=== PATIENT | male | born 1965 | race American Indian/Alaskan Native ===

== ENCOUNTER 2017-08-19 07:48 | Emergency (ER) | payer OTHER ==
[2017-08-19 07:54] VITALS: BP 170/103
--- NOTE | 2017-08-19 08:44 | Emergency Department Report ---
HPI - General Chief Complaint: Extremity Injury, Lower - HPI HPI: 51-year-old -[place] male with a past medical history of hypertension and has not taken his meds today comes in for complaint of right leg pain that starts from the lower back that radiates down his buttocks to his right mid thigh. 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 Patient reports that he took 1 dose of ibuprofen 800 report did not really help. He reports his been using [id number] BenGay icy hot Epson salt soaks. Only medication he is on his hydrochlorothiazide 12.5 mg daily. He denies any trauma at this time. ED Past Medical Hx - Past Medical History Hx Hypertension: Yes - Surgical History Additional Surgical History: BACK SURGERY CECILY IN LEG - Social History Smoking Status: Current Every Day Smoker Substance Use Type: Alcohol - Medications Home Medications: Home Medications Medication Instructions Recorded Confirmed Last Taken Type Naproxen 500 mg PO BID #14 tablet 08/19/17 Unknown Rx predniSONE [Deltasone] 20 mg PO QDAY #4 tab 08/19/17 Unknown Rx ED Review of Systems ROS: Stated complaint: RIGHT LEG PAIN Other details as noted in HPI Constitutional: denies: chills, fever Eyes: denies: eye pain, eye discharge, vision change ENT: denies: ear pain, throat pain Respiratory: denies: cough, shortness of breath, wheezing Cardiovascular: denies: chest pain, palpitations Endocrine: no symptoms reported Gastrointestinal: denies: abdominal pain, nausea, diarrhea Genitourinary: denies: urgency, dysuria Musculoskeletal: back pain (lower right back pain) Skin: denies: rash, lesions Neurological: denies: headache, weakness, paresthesias Psychiatric: denies: anxiety, depression Hematological/Lymphatic: denies: easy bleeding, easy bruising Physical Exam - Physical Exam Vital Signs: Vital Signs 08/19/17 07:50 Temperature 97.8 F Pulse Rate 80 Respiratory 18 Rate Blood Pressure 170/103 O2 Sat by Pulse 100 Oximetry Physical Exam: GENERAL: Alert and oriented x3, no apparent distress, Normal Gait, atraumatic. HEAD: Head is normocephalic and a-traumatic. EYES: Extra ocular muscles are intact. Pupils are equal, round, and reactive to light and accommodation. LUNGS: Symetrical with respiration, No wheezing, no rales or crackles, CTAB. HEART: S1, S2 present, regular rate and rhythm without murmur, no rubs, no gallops. EXTREMITIES/MUSCULOSKELETAL: No cyanosis, clubbing, rash, lesions or edema. Full ROM bilaterally. UE/LE Pulses 2+ bilaterally. LE and UE 5+ strength bilaterally positive straight leg exam on the right leg at approximately 45, tenderness to the sciatic notch on the right side NEUROLOGIC: No focal Deficit, Cranial nerves II through XII are grossly intact. No loss of sensation, No facial droop, Negative rhomberg. PSYCHIATRIC: Mood is congruent with affect, denies suicidal or homicidal ideations. SKIN: Warm and dry, No lesions, No ulceration or induration present ED Course Vital Signs 08/19/17 07:50 Temperature 97.8 F Pulse Rate 80 Respiratory 18 Rate Blood Pressure 170/103 O2 Sat by Pulse 100 Oximetry ED Medical Decision Making - Medical Decision Making Patient has been evaluated by this provider fast track. Discussed this patient is sounds like sciatica episode. Discussed with patient that treatment is usually a nonsteroidal anti-inflammatory medications such as [id number] ibuprofen, Aleve,. Also discussed patient that I give him a Toradol injection to help get him out of acute pain. Discussed the patient place him on a few days of steroids to see if that would improve the inflammation. Discussed the patient I will shirley him a few days off of work so he is able to improve with his acute pain. Discussed with patient to take his hypertensive medication which consist of hydrochlorothiazide 12.5 mg daily. Patient verbalized understanding Critical care attestation.: If time is entered above; I have spent that time in minutes in the direct care of this critically ill patient, excluding procedure time. ED Disposition Clinical Impression: Right sciatic nerve pain Disposition: DC-01 TO HOME OR SELFCARE Is pt being admited?: No Does the pt Need Aspirin: No Condition: Stable Instructions: Lumbar Radiculopathy (ED) Additional Instructions: Take medication as prescribed. Follow up with your primary care provider in 3- 5 days if pain persists. Prescriptions: Naproxen 500 mg PO BID #14 tablet predniSONE [Deltasone] 20 mg PO QDAY #4 tab Referrals: [facility] [Provider Group] - 3-5 Days
[2017-08-19] MEDS ORDERED: TORADOL IM ONE (08:48)
[2017-08-19] MEDS ORDERED: ZESTRIL PO ONE (08:49)
[2017-08-19] MEDS ORDERED: DECADRON IM ONE (08:53)
== END 2017-08-19 09:23 | disposition home or self-care (01) ==
LOC: ED 07:48
DX: M54.31 Sciatica, right side (principal); I10 Essential (primary) hypertension; F17.200 Nicotine dependence, unspecified, uncomplicated
CPT/HCPCS: 96372; 99282; J1100; J1885

== ENCOUNTER 2018-12-12 16:50 | Observation (INO) | payer OTHER ==
--- NOTE | 2018-12-12 16:57 | Emergency Department Report ---
Blank Doc - Documentation Documentation: This is a 53-year-old with nausea and vomiting. Also has HTN. Deneis any abd ominal pain. This initial assessment/diagnostic orders/clinical plan/treatment(s) is/are subject to change based on patient's health status, clinical progression and re- assessment by fellow clinical providers in the ED. Further treatment and workup at subsequent clinical providers discretion. Patient/guardians urged not to elope from the ED as their condition may be serious if not clinically assessed and managed. Initial orders include: 1- Patient sent to [facility] for further evaluation and treatment 2- labs
[2018-12-12] MEDS ORDERED: ZOFRAN ODT PO ONE (17:15)
[2018-12-12] MEDS ORDERED: CATAPRES PO ONE (17:15)
[2018-12-12] MEDS ORDERED: BENTYL PO ONE (17:15)
[2018-12-12 17:21] LABS: Hematocrit 49.6 % (35.5-45.6); Hemoglobin 17.1 gm/dl (11.8-15.2); Mean Corpuscular HGB Conc 34 % (32-34); Mean Corpuscular Volume 98 fl (84-94); Platelet Count 277 K/mm3 (140-440); Red Blood Count 5.05 M/mm3 (3.65-5.03); Red Cell Distribution Width 13.3 % (13.2-15.2)
[2018-12-12] MEDS ORDERED: NACL 0.9% 1000 ML 1,000 ML IV ONE ×2 (17:30→19:09)
[2018-12-12 17:33] LABS: Alanine Aminotransferase 54 units/L (7-56); BUN/Creatinine Ratio 15; Blood Urea Nitrogen 18 mg/dL (9-20); Calcium 11.1 mg/dL (8.4-10.2); Hemolysis Index 43
[2018-12-12 17:37] LABS: Bilirubin,Direct 0.3 mg/dL (0-0.2)
[2018-12-12 18:02] LABS: RBC Morphology Normal; Total Cells Counted 100
--- NOTE | 2018-12-12 18:02 | Emergency Department Report ---
<MURALI REESE - Last Filed: 12/12/18 19:10> ED Abdominal Pain HPI - General Chief Complaint: Nausea/Vomiting/Diarrhea Stated Complaint: HBP/VOMITTING Time Seen by Provider: 12/12/18 16:56 Source: patient Mode of arrival: Ambulatory Limitations: No Limitations - History of Present Illness Initial Comments: Patient is a pleasant 53-year-old -[place] male who comes to the ER today complaining of vomiting for 2-3 days. He last vomited about 3:00. He also states that he has diarrhea which he last experienced this morning. Complains of an epigastric area pain. He does drink daily. He admits to cigare ttes. Denies any previous surgeries. He has a past medical history of hypertension for which he takes HCTZ for. He states that he's noticed that his blood pressure has been elevated lately but is in the context of having pain. is at bedside with him. Patient sitting up in no acute distress and is afebrile on exam. -: Gradual, days(s) Location: epigastric Severity scale (0 -10): 0 Quality: cramping Consistency: intermittent Improves With: nothing Worsens With: nothing Context: other (DAILY ETOH) Associated Symptoms: nausea, vomiting, diarrhea - Related Data Previous Rx's Medication Instructions Recorded Last Taken Type Ondansetron [Zofran Odt] 4 mg PO Q8HR PRN #10 tab.rapdis 12/12/18 Unknown Rx Allergies Allergy/AdvReac Type Severity Reaction Status Date / Time No Known Allergies Allergy Verified 12/12/18 17:16 ED Review of Systems Comment: All other systems reviewed and negative Gastrointestinal: as per HPI, abdominal pain, nausea, vomiting, diarrhea ED Past Medical Hx - Past Medical History Hx Hypertension: Yes - Surgical History Additional Surgical History: BACK SURGERY CECILY IN LEG - Family History Family history: no significant - Social History Smoking Status: Never Smoker Substance Use Type: Alcohol - Medications Home Medications: Home Medications Medication Instructions Recorded Confirmed Last Taken Type Ondansetron [Zofran Odt] 4 mg PO Q8HR PRN #10 tab.rapdis 12/12/18 Unknown Rx ED Physical Exam - General Limitations: No Limitations General appearance: alert - Head Head exam: Present: normocephalic - Eye Eye exam: Present: PERRL - ENT ENT exam: Present: mucous membranes moist - Neck Neck exam: Present: normal inspection - Respiratory Respiratory exam: Present: normal lung sounds bilaterally - Cardiovascular Cardiovascular Exam: Present: regular rate - GI/Abdominal GI/Abdominal exam: Present: soft, normal bowel sounds. Absent: tenderness - Rectal Rectal exam: Present: deferred - Extremities Exam Extremities exam: Present: normal inspection, full ROM - Back Exam Back exam: Present: normal inspection, full ROM - Neurological Exam Neurological exam: Present: alert, oriented X3, CN II-XII intact - Psychiatric Psychiatric exam: Present: normal affect, normal mood - Skin Skin exam: Present: warm, dry, intact ED Course - Reevaluation(s) Reevaluation #1: 12/12/18 18:59 VOMITING IN ER ED Medical Decision Making - Lab Data Result diagrams: 12/12/18 17:09 12/12/18 17:09 - Radiology Data Radiology results: report reviewed, image reviewed - Medical Decision Making Vital Signs 12/12/18 12/12/18 12/12/18 16:55 16:57 17:32 Temperature 98.7 F 98.7 F 98.5 F Pulse Rate 101 H 101 H 84 Respiratory 16 16 16 Rate Blood Pressure 161/100 Blood Pressure 161/100 135/98 [Left] O2 Sat by Pulse 100 98 100 Oximetry Labs 12/12/18 12/12/18 17:09 17:09 WBC 10.8 RBC 5.05 H Hgb 17.1 H Hct 49.6 H MCV 98 H MCH 34 H MCHC 34 RDW 13.3 Plt Count 277 Add Manual Diff Complete Total Counted 100 Seg Neutrophils % Car Cleaner Seg Neuts % (Manual) 89.0 H Band Neutrophils % 0 Lymphocytes % (Manual) 5.0 L Reactive Lymphs % (Man) 0 Monocytes % (Manual) 3.0 Eosinophils % (Manual) 1.0 Basophils % (Manual) 2.0 H Metamyelocytes % 0 Myelocytes % 0 Promyelocytes % 0 Blast Cells % 0 Nucleated RBC % Not Reportable Seg Neutrophils # Man 9.6 H Band Neutrophils # 0.0 Lymphocytes # (Manual) 0.5 L Abs React Lymphs (Man) 0.0 Monocytes # (Manual) 0.3 Eosinophils # (Manual) 0.1 Basophils # (Manual) 0.2 H Metamyelocytes # 0.0 Myelocytes # 0.0 Promyelocytes # 0.0 Blast Cells # 0.0 WBC Morphology Not Reportable Hypersegmented Neuts Not Reportable Hyposegmented Neuts Not Reportable Hypogranular Neuts Not Reportable Smudge Cells Not Reportable Toxic Granulation Not Reportable Toxic Vacuolation Not Reportable Dohle Bodies Not Reportable Pelger-Huet Anomaly Not Reportable Collette Rods Not Reportable Platelet Estimate Not Reportable Clumped Platelets Not Reportable Plt Clumps, EDTA Not Reportable Large Platelets Not Reportable Giant Platelets Not Reportable Platelet Satelliting Not Reportable Plt Morphology Comment Not Reportable RBC Morphology Normal Dimorphic RBCs Not Reportable Polychromasia Not Reportable Hypochromasia Not Reportable Poikilocytosis Not Reportable Anisocytosis Not Reportable Microcytosis Not Reportable Macrocytosis Not Reportable Spherocytes Not Reportable Pappenheimer Bodies Not Reportable Sickle Cells Not Reportable Target Cells Not Reportable Tear Drop Cells Not Reportable Ovalocytes Not Reportable Helmet Cells Not Reportable [place] Bodies Not Reportable [place] Rings Not Reportable Yoel Cells Not Reportable Bite Cells Not Reportable Crenated Cell Not Reportable Elliptocytes Not Reportable Acanthocytes (Spur) Not Reportable Rouleaux Not Reportable Hemoglobin C Crystals Not Reportable Schistocytes Not Reportable Malaria parasites Not Reportable Obed Bodies Not Reportable Hem Pathologist Commnt No Sodium 140 Potassium 4.7 Chloride 97.1 L Carbon Dioxide 29 Anion Gap 19 BUN 18 Creatinine 1.2 Estimated GFR > 60 BUN/Creatinine Ratio 15 Glucose 132 H Calcium 11.1 H Total Bilirubin 1.20 Direct Bilirubin 0.3 H Indirect Bilirubin 0.9 AST 39 ALT 54 Alkaline Phosphatase 58 Total Protein 8.6 H Albumin 5.0 Albumin/Globulin Ratio 1.4 Lipase 75 H 1LNS ZOFRAN/BENTYL BP RECHECKED AND NORMAL SO CLONIDINE NOT GIVEN LIPASE NOTED CT COMPLETED. 1909 CT PENDING 2ND L NS INFUSING. PLAN 1. CT RESULTS 2. DC HOME WITH DISCHARGE PLAN OF CARE 3. VS AND PO CHALLENGE PRIOR TO DC - Differential Diagnosis RO PANCREATITIS; GASTRENTERITIS ED Disposition Clinical Impression: Intractable nausea and vomiting Disposition: OP ADMIT IP TO THIS HOSP Is pt being admited?: No Does the pt Need Aspirin: No Condition: Stable Time of Disposition: 19:00 <MARCO ARCE - Last Filed: 12/13/18 01:10> ED Review of Systems ROS: Stated complaint: HBP/VOMITTING Other details as noted in HPI ED Course Vital Signs 12/12/18 12/12/18 12/12/18 16:55 16:57 17:32 Temperature 98.7 F 98.7 F 98.5 F Pulse Rate 101 H 101 H 84 Respiratory 16 16 16 Rate Blood Pressure 161/100 Blood Pressure 161/100 135/98 [Left] O2 Sat by Pulse 100 98 100 Oximetry ED Medical Decision Making - Lab Data Result diagrams: 12/12/18 17:09 12/12/18 17:09 - Medical Decision Making Mr. Berger is a 24-year-old male present with a history of hypertension and tobacco abuse, status post alcohol binge on this past Monday, 2 days ago when 2 day history of nausea, vomiting and abdominal pain. The patient was initially seen by [facility] than extensive workup including laboratory data and CT scan. M ildly elevated lipase and essentially normal CAT scan. Patient was unresponsive to initial Zofran. A second round of Zofran was provided with no improvement as well. Also Reglan 10 mg with Benadryl. This also was unsuccessful. Fluids were also provided and Haldol IM was provided was again was unsuccessful.. Case was discussed with hospitalist, Dr. Cruz to plan to admit for observation for intractable nausea and vomiting with abdominal pain. Critical care attestation.: If time is entered above; I have spent that time in minutes in the direct care of this critically ill patient, excluding procedure time. ED Disposition Is pt being admited?: Yes
[2018-12-12] MEDS ORDERED: ZOFRAN IV ONE (19:01)
--- NOTE | 2018-12-12 19:10 | XRay Report ---
PROCEDURE: XR ABD SERIES W CXR 1V TECHNIQUE: Abdominal series complete, including supine and upright AP views of the abdomen and front al chest. HISTORY: PAIN COMPARISONS: None . FINDINGS: Heart: Normal contour. Mediastinum/Vessels: Normal contour. Lungs/Pleural space: No infiltrate, effusion, or pneumothorax. Bowel gas pattern: Nonobstructive . Abnormal calcifications: None . Bony structures: No acute osseous abnormality . Left hip joint osteoarthritis Other: No free intraperitoneal air . IMPRESSION: Bowel gas pattern is nonobstructive. This document is electronically signed by Janeen Ferraro MD., December 12 2018 07:08:07 PM ET
[2018-12-12] MEDS ORDERED: ZOFRAN IV STA (19:59)
[2018-12-12] MEDS ORDERED: REGLAN IV STA (19:59)
[2018-12-12] MEDS ORDERED: BENADRYL IV STA (19:59)
--- NOTE | 2018-12-12 20:01 | Cat Scan Report ---
PROCEDURE: CT ABDOMEN PELVIS W CON HISTORY: ABD PAIN FINDINGS: Contrast-enhanced CT of the abdomen and pelvis was performed the heart is normal in size. T he lung bases appear clear. ABDOMEN: There is fatty infiltration of the liver. There is a right lobe hepatic cyst, 2.2 x 1.4 cm. The spleen, adrenal glands, pancreas, gallbladder are unremarkable. There is no renal or ureteral marino culus. There is no small or large bowel obstruction. The abdominal aorta is normal in size. Pelvis: The appendix is not seen. There is no evidence of appendicitis. There is no evidence of diverticuliti s. There is some stranding around the seminal vesicles. This is nonspecific but could represent prostati tis and/or infection of the seminal vesicles and clinical correlation is advised. There is no abscess . The urinary bladder is unremarkable. There is no free air. There is a vacuum disc at L4-L5. Impression: ABDOMEN: Fatty infiltration of the liver Right lobe hepatic cyst Pelvis: No evidence of diverticulitis Mild stranding around seminal vesicles which could represent infection/inflammation of the seminal ve sicles. No abscess is seen This document is electronically signed by Cruz Melendez MD., December 12 2018 07:59:42 PM ET
[2018-12-12] MEDS ORDERED: HALDOL IM STA (21:38)
[2018-12-13] MEDS ORDERED: MORPHINE IV PRN (00:41)
[2018-12-13] MEDS ORDERED: ZOFRAN IV PRN (00:43)
[2018-12-13 00:52] LABS: Bilirubin,Urine NEG (Negative); Blood,Urine NEG (Negative); Color,Urine Yellow (Yellow); Mucus,Urine FEW /HPF; Protein,Urine <15 mg/dL mg/dL (Negative); Urobilinogen,Urine < 2.0 mg/dL (<2.0); WBC,Urine < 1.0 /HPF (0.0-6.0)
[2018-12-13] MEDS: NACL 0.9% 1000 ML 1,000 ML IV SCH ×2 (02:09→08:56)
[2018-12-13] MEDS ORDERED: TYLENOL PR PRN (05:02)
--- NOTE | 2018-12-13 05:54 | History and Physical Report ---
CHIEF COMPLAINT: Nausea and vomiting. HISTORY OF PRESENTING ILLNESS: The patient is a 53-year-old male who said he has been having nausea and vomiting going on for about 2 days. There was associated slight abdominal pain. Also, the patient complained of diarrhea and admitted to drinking alcohol daily. Also, the patient admitted to smoking cigarettes. Denies history of fever or chills and denies history of shortness of breath or chest pain and presented for evaluation. PAST MEDICAL HISTORY: Pertinent for hypertension. PAST SURGICAL HISTORY: Pertinent for back surgery. FAMILY HISTORY: Noncontributory. SOCIAL HISTORY: The patient smokes cigarettes, drinks alcohol regularly, and does not use illicit drugs. MEDICATIONS: The patient is on Zofran or ondansetron 4 mg every 8 hours as needed for nausea or vomiting. ALLERGIES: There are no known drug allergies. REVIEW OF SYSTEMS: CONSTITUTIONAL: There is no fever, no chills, no diaphoresis. HEENT: There is no headache or sore throat. CARDIOVASCULAR SYSTEM: There is no chest pain or orthopnea. RESPIRATORY SYSTEM: There is no shortness of breath or cough. GASTROINTESTINAL SYSTEM: Abdominal pain present. Nausea, vomiting, and diarrhea present. No constipation. NEUROLOGICAL SYSTEM: There is no numbness, no dizziness, no altered mental status. MUSCULOSKELETAL SYSTEM: There is no joint pain or swelling. DERMATOLOGICAL SYSTEM: There is no skin rash or itching. GENITOURINARY SYSTEM: There is no dysuria, hematuria, or flank pain. Rest of system review is normal. PHYSICAL EXAMINATION: GENERAL: At the time of exam, the patient was found to be alert, oriented x 3, and not in acute distress. VITAL SIGNS: At the initial time of presentation showed temperature of 98.7 degrees Fahrenheit, pulse of 101, respirations 16, blood pressure 161/100, O2 sat of 100% on room air. HEENT: Showed pupils to be equal, round, and react to light and accommodation. Extraocular muscles were intact. NECK: Supple with no JVD or carotid bruit. CARDIOVASCULAR SYSTEM: Showed normal first and second heart sounds with no gallops or murmurs. RESPIRATORY SYSTEM: Showed good air entry on both sides of the lungs with no abnormal breath sounds. GASTROINTESTINAL SYSTEM: Showed abdomen to be full, soft, nontender with no organomegaly or rigidity. NEUROLOGIC: Showed no focal deficits. MUSCULOSKELETAL SYSTEM: Showed no joint swelling or tenderness. DERMATOLOGICAL SYSTEM: Showing no skin rash. GENITOURINARY SYSTEM: Showing no costovertebral angle tenderness. PERTINENT LABORATORY DATA AND IMAGING STUDIES: The patient had CT of the abdomen and pelvis done with contrast that shows fatty infiltrate of the liver with right lobe hepatic cyst and no evidence of diverticulitis. There was finding of mild stranding around the seminal vesicle which could represent infection/inflammation on the seminal vesicle. No abscess was seen. The patient also had chest/abdominal x-ray that shows bowel gas pattern that is nonobstructive. Lab results; the patient had CBC done with normal white count, elevated hemoglobin of 17.1, and elevated hematocrit of 49.6 with chemistry being unremarkable except for slight increase in lipase level of 75. Urinalysis was unremarkable. DIAGNOSES: 1. Intractable nausea and vomiting. 2. Mild dehydration. PLAN OF CARE: 1. The patient will be placed on observation in the medical surgical guillen. 2. The patient will be on IV normal saline running at 125 mL an hour. 3. The patient will be on IV Zofran 4 mg every 6 hours as needed for nausea and vomiting. 4. The patient will be on IV morphine 2 mg every 4 hours day as needed for pain and will be on Tylenol 650 mg rectally every 4 hours for fever and headache. 5. The patient will be on smoking cessation counseling. JOB# [id number] OCN/NTS
[2018-12-13 09:53] LABS: Hematocrit 46.7 % (35.5-45.6); Hemoglobin 15.7 gm/dl (11.8-15.2); Mean Corpuscular HGB Conc 34 % (32-34); Mean Corpuscular Volume 99 fl (84-94); Platelet Count 257 K/mm3 (140-440); Red Blood Count 4.69 M/mm3 (3.65-5.03); Red Cell Distribution Width 13.2 % (13.2-15.2)
[2018-12-13] MEDS ORDERED: HEPARIN SUB-Q SCH (10:00)
[2018-12-13 10:13] LABS: BUN/Creatinine Ratio 13; Blood Urea Nitrogen 14 mg/dL (9-20); Calcium 9.6 mg/dL (8.4-10.2); Hemolysis Index 10
[2018-12-13 11:35] VITALS: BP 164/92
--- NOTE | 2018-12-13 15:28 | Discharge Summary ---
Providers - Providers Date of Admission: 12/13/18 00:40 Date of discharge: 12/13/18 Attending physician: STEPHANY TRONCOSO Primary care physician: ANISA ADAIR MD Hospitalization Condition: Fair Hospital course: Patient is 53 yo with hypertension, presented with nausea and vomiting. He was evaluated in Ed and admitted. Patient put on Zofran iv fluids. He was diagnosed with gastroenteritis. later same day symptoms resolved so was discharged home. Disposition: DC-01 TO HOME OR SELFCARE - Discharge Diagnoses (1) Gastroenteritis Status: Acute (2) Intractable nausea and vomiting Status: Acute (3) Hypertension Status: Acute Core Measure Documentation - Palliative Care Palliative Care/ Comfort Measures: Not Applicable - Core Measures Any of the following diagnoses?: none Exam - Constitutional Vitals: Temp Pulse Resp BP Pulse Ox 98.8 F 87 20 164/92 97 12/13/18 11:33 12/13/18 11:33 12/13/18 11:33 12/13/18 11:33 12/13/18 11:33 Plan Activity: no restrictions Diet: low fat, low cholesterol, low salt Additional Instructions: 1.Follow up with PCP or [facility] in 1 week. 2.Avoid Alcohol Follow up with: PRIMARY CARE, [Primary Care Provider] - 3-5 Days Forms: Work/School Release Form(ED) Prescriptions: Ondansetron [Zofran Odt] 4 mg PO Q8HR PRN #10 tab.rapdis PRN Reason: Vomiting
== END 2018-12-13 16:50 | disposition home or self-care (01) ==
LOC: ED 16:50 → 3A 12-13 00:40
PROVIDERS: ADMIT Internal Medicine; ATTEND Internal Medicine
DX: E86.0 Dehydration (principal); R11.2 Nausea with vomiting, unspecified; I10 Essential (primary) hypertension; Z98.890 Other specified postprocedural states
CPT/HCPCS: 36415; 74022; 74177; 80048; 80076; 81001; 83690; 85007; 85025; 85027; 96361; 96372; 96374; 96375; 96376; 99284; G0378; J1200; J1630; J1644; J2405; J2765; J7030; Q9967; Q0162

== ENCOUNTER 2019-10-17 08:32 | Emergency (ER) | payer OTHER ==
[2019-10-17] MEDS: SODIUM CHLORIDE 0.9% 1000 ML 1,000 ML IV ONE (10:08)
[2019-10-17] MEDS: ONDANSETRON 4 MG/2 ML INJ IV ONE (10:08)
[2019-10-17 10:44] LABS: Hematocrit 51.1 % (35.5-45.6); Mean Corpuscular HGB Conc 33 % (32-34); Mean Corpuscular Volume 96 fl (84-94); Platelet Count 313 K/mm3 (140-440); Red Blood Count 5.31 M/mm3 (3.65-5.03); Red Cell Distribution Width 13.2 % (13.2-15.2)
[2019-10-17 11:06] LABS: Alanine Aminotransferase 37 units/L (7-56); Albumin 5.1 g/dL (3.9-5); BUN/Creatinine Ratio 21; Blood Urea Nitrogen 21 mg/dL (9-20); Hemolysis Index 22
[2019-10-17 11:53] LABS: Total Cells Counted 100
--- NOTE | 2019-10-17 11:53 | Emergency Department Report ---
ED Abdominal Pain HPI - General Chief Complaint: Abdominal Pain Stated Complaint: POSS STOMACH VIRUS Time Seen by Provider: 10/17/19 09:45 Source: patient Mode of arrival: Ambulatory Limitations: No Limitations - History of Present Illness Initial Comments: Patient is a 53-year-old F [place] male has had nausea vomiting for the past day. Patient states he started having some abdominal discomfort approximately 2 to 3 days ago in the epigastrium. There is no radiation. Patient states starting yesterday afternoon he has been continuously vomiting. Patient is complaining of dry mouth and some mild weakness. Patient felt as though his heart rate was increasing. He denies fever diarrhea cough cold or congestion at this time. Patient states that the emesis is nonbloody - Related Data Previous Rx's Medication Instructions Recorded Last Taken Type Ondansetron [Zofran Odt] 4 mg PO Q8HR PRN #10 tab.rapdis 12/12/18 Unknown Rx Dicyclomine [Bentyl] 20 mg PO QID #10 tablet 10/17/19 Unknown Rx Famotidine [Pepcid] 40 mg PO QHS #10 tablet 10/17/19 Unknown Rx Ondansetron [Zofran Odt] 4 mg PO Q8HR #10 tab.rapdis 10/17/19 Unknown Rx Allergies Allergy/AdvReac Type Severity Reaction Status Date / Time No Known Allergies Allergy Verified 12/12/18 17:16 ED Review of Systems ROS: Stated complaint: POSS STOMACH VIRUS Other details as noted in HPI Comment: All other systems reviewed and negative ED Past Medical Hx - Past Medical History Hx Hypertension: Yes (on meds for 2 years) Hx Congestive Heart Failure: No Hx Diabetes: No Hx Sickle Cell Disease: No Hx Asthma: No Hx COPD: No Hx HIV: No - Surgical History Additional Surgical History: BACK SURGERY CECILY IN LEG - Social History Smoking Status: Current Every Day Smoker Substance Use Type: Alcohol - Medications Home Medications: Home Medications Medication Instructions Recorded Confirmed Last Taken Type Ondansetron [Zofran Odt] 4 mg PO Q8HR PRN #10 tab.rapdis 12/12/18 Unknown Rx Dicyclomine [Bentyl] 20 mg PO QID #10 tablet 10/17/19 Unknown Rx Famotidine [Pepcid] 40 mg PO QHS #10 tablet 10/17/19 Unknown Rx Ondansetron [Zofran Odt] 4 mg PO Q8HR #10 tab.rapdis 10/17/19 Unknown Rx ED Physical Exam - General Limitations: No Limitations General appearance: alert, in no apparent distress - Head Head exam: Present: atraumatic, normocephalic - Eye Eye exam: Present: normal appearance. Absent: PERRL, EOMI - ENT ENT exam: Present: mucous membranes moist - Neck Neck exam: Present: normal inspection - Respiratory Respiratory exam: Present: normal lung sounds bilaterally. Absent: respiratory distress, wheezes, rales, rhonchi - Cardiovascular Cardiovascular Exam: Present: regular rate, normal rhythm, normal heart sounds. Absent: systolic murmur, diastolic murmur, rubs, gallop - GI/Abdominal GI/Abdominal exam: Present: soft, tenderness (Epigastric), normal bowel sounds. Absent: distended, guarding, rebound, rigid - Rectal Rectal exam: Present: deferred - Extremities Exam Extremities exam: Present: normal inspection - Back Exam Back exam: Present: normal inspection - Neurological Exam Neurological exam: Present: alert, oriented X3 - Psychiatric Psychiatric exam: Present: normal affect, normal mood - Skin Skin exam: Present: warm, dry, intact, normal color. Absent: rash ED Course Vital Signs 10/17/19 08:37 Temperature 98.5 F Pulse Rate 114 H Respiratory 20 Rate Blood Pressure 155/109 O2 Sat by Pulse 97 Oximetry ED Medical Decision Making - Lab Data Result diagrams: 10/17/19 10:20 10/17/19 10:20 - Medical Decision Making Patient is a 53-year-old F [place] male with nausea vomiting epigastric discomfort. Patient was given some Zofran and IV fluids and states he feels some improvement. Laboratory studies within normal limits. Is slight increase in his white count likely secondary to demargination. Patient's epigastric discomfort is not related to eating fatty foods do not believe that the patient needs ultrasound to rule out cholecystitis at this time. There is no lower abdominal discomfort. Patient will be discharged home. Patient given follow-up with GI in case his symptoms return. Patient likely with gastritis Critical care attestation.: If time is entered above; I have spent that time in minutes in the direct care of this critically ill patient, excluding procedure time. ED Disposition Clinical Impression: Acute gastritis Qualifiers: Gastritis type: unspecified gastritis Gastritis bleeding: without bleeding Qualified Code(s): K29.00 - Acute gastritis without bleeding Disposition: DC-01 TO HOME OR SELFCARE Is pt being admited?: No Does the pt Need Aspirin: No Condition: Stable Instructions: Gastritis (ED), Diet for Ulcers and Gastritis (ED) Referrals: [facility] [Provider Group] - 3-5 Days Forms: Work/School Release Form(ED) Time of Disposition: 11:53
[2019-10-17 11:54] LABS: Basophils % (Manual) 0 % (0.0-1.8); Eosinophils % (Manual) 0 % (0.0-4.3); Giant Platelets Rare; Platelet Estimate Consistent w Auto; RBC Morphology Normal
[2019-10-17 12:11] VITALS: BP 192/107
== END 2019-10-17 12:20 | disposition home or self-care (01) ==
LOC: ED 08:32
DX: K29.00 Acute gastritis without bleeding (principal); I10 Essential (primary) hypertension; Z98.890 Other specified postprocedural states; Z79.899 Other long term (current) drug therapy
CPT/HCPCS: 36415; 80053; 83690; 85007; 85025; 96361; 96374; 99283; J2405; J7030

== ENCOUNTER 2020-03-21 11:48 | Emergency (ER) | payer OTHER ==
[2020-03-21 12:16] VITALS: BP 162/107
--- NOTE | 2020-03-21 13:06 | Event Note ---
ED Screening Note Date of service: 03/21/20 Time: 13:03 ED Screening Note: Patient complains of nausea and vomiting x4 days Admits to mild abdominal pain states protonix is not helping hx of gastritis, PUD, and pancreatitis per pt admits to high alcohol intake This initial assessment/diagnostic orders/clinical plan/treatment(s) is/are subject to change based on patients health status, clinical progression and re- assessment by fellow clinical providers in the ED. Further treatment and workup at subsequent clinical providers discretion. Patient/guardian urged not to elope from the ED as their condition may be serious if not clinically assessed and managed. Initial orders include: labs
[2020-03-21 14:39] LABS: Hematocrit 52.4 % (35.5-45.6); Mean Corpuscular HGB Conc 33 % (32-34); Mean Corpuscular Volume 100 fl (84-94); Platelet Count 315 K/mm3 (140-440); Red Blood Count 5.26 M/mm3 (3.65-5.03); Red Cell Distribution Width 13.1 % (13.2-15.2)
[2020-03-21 15:00] LABS: Alanine Aminotransferase 25 units/L (7-56); BUN/Creatinine Ratio 20; Blood Urea Nitrogen 20 mg/dL (9-20); Calcium 10.8 mg/dL (8.4-10.2); Hemolysis Index 10
[2020-03-21 15:59] LABS: Basophils % (Manual) 0 % (0.0-1.8); Eosinophils % (Manual) 0 % (0.0-4.3); Total Cells Counted 100
[2020-03-21 16:00] LABS: Large Platelets Rare; Platelet Estimate Consistent w Auto; RBC Morphology Normal
[2020-03-21] MEDS ORDERED: ONDANSETRON 4 MG/2 ML INJ IV ONE (20:40)
[2020-03-21] MEDS ORDERED: SODIUM CHLORIDE 0.9% 1000 ML 1,000 ML IV ONE (20:40)
[2020-03-21] MEDS ORDERED: FAMOTIDINE 20 MG/2 ML INJ IV ONE (20:55)
--- NOTE | 2020-03-21 20:57 | Emergency Department Report ---
HPI - General Chief Complaint: Nausea/Vomiting/Diarrhea Time Seen by Provider: 03/21/20 13:02 - [facility] HPI: Room 34 The patient is a 54-year-old male present with a chief complaint of nausea and vomiting. Patient states his symptoms began 3 days ago. Patient states he was eating some food and began to "sour" his stomach making him nauseous. Patient states on the way home he began vomiting. Patient states at some point he felt very nauseous and made himself vomit by sticking his finger down his throat. The patient states he feels "overloaded." Patient states his last bowel movement occurred yesterday and was within normal limits. Patient denies bright red blood per rectum or melena. Patient denies fever cough or shortness of breath. Patient denies abdominal pain but states she has back pain during vomiting. Patient states she has been diagnosed with gastritis in the past ED Past Medical Hx - Past Medical History Previous Medical History?: Yes Hx Hypertension: Yes (on meds for 2 years) - Surgical History Past Surgical History?: Yes Additional Surgical History: BACK SURGERY CECILY IN LEG - Family History Family history: no significant - Social History Smoking Status: Current Every Day Smoker (Cigars) Substance Use Type: None (Denies illicit drug use), Alcohol (Moderate) - Medications Home Medications: Home Medications Medication Instructions Recorded Confirmed Last Taken Type Ondansetron [Zofran Odt] 4 mg PO Q8HR PRN #10 tab.rapdis 12/12/18 Unknown Rx Dicyclomine [Bentyl] 20 mg PO QID #10 tablet 10/17/19 Unknown Rx Famotidine [Pepcid] 40 mg PO QHS #10 tablet 10/17/19 Unknown Rx Ondansetron [Zofran Odt] 4 mg PO Q8HR #10 tab.rapdis 10/17/19 Unknown Rx Metoclopramide [Reglan] 10 mg PO QID PRN #20 tab 03/21/20 Unknown Rx Promethazine [Phenergan] 25 mg DC Q6HR PRN #5 supp.rect 03/21/20 Unknown Rx ED Review of Systems ROS: Stated complaint: STOMACH PAIN Other details as noted in HPI Constitutional: denies: fever Eyes: denies: eye pain ENT: denies: throat pain Respiratory: no symptoms reported. denies: cough Endocrine: no symptoms reported Gastrointestinal: nausea, vomiting. denies: abdominal pain, diarrhea, constipation, melena, hematochezia Musculoskeletal: back pain Neurological: denies: headache Physical Exam - Physical Exam Vital Signs: Vital Signs 03/21/20 12:15 Temperature 98.9 F Pulse Rate 107 H Respiratory 20 Rate Blood Pressure 162/107 [Right] O2 Sat by Pulse 98 Oximetry Physical Exam: GENERAL: The patient is well-developed well-nourished male lying on stretcher not appearing to be in acute distress. [] HEENT: Normocephalic. Atraumatic. Extraocular motions are intact. Patient has moist mucous membranes. NECK: Supple. Trachea midline CHEST/LUNGS: Clear to auscultation. There is no respiratory distress noted. HEART/CARDIOVASCULAR: Regular. There is no tachycardia. There is no gallop rub or murmur. ABDOMEN: Abdomen is soft, nontender. Patient has normal bowel sounds. There is no abdominal distention. SKIN: There is no rash. There is no edema. There is no diaphoresis. NEURO: The patient is awake, alert, and oriented. The patient is cooperative. The patient has normal speech MUSCULOSKELETAL: There is no evidence of acute injury. ED Course Vital Signs 03/21/20 12:15 Temperature 98.9 F Pulse Rate 107 H Respiratory 20 Rate Blood Pressure 162/107 [Right] O2 Sat by Pulse 98 Oximetry ED Medical Decision Making - Lab Data Result diagrams: 03/21/20 14:15 03/21/20 14:15 Laboratory Tests 03/21/20 03/21/20 14:15 14:15 WBC 12.6 H RBC 5.26 H Hgb 17.0 H Hct 52.4 H MCV 100 H MCH 32 MCHC 33 RDW 13.1 L Plt Count 315 Add Manual Diff Complete Total Counted 100 Seg Neutrophils % Travel Registered Nurse Nicu Seg Neuts % (Manual) 95.0 H Band Neutrophils % 0 Lymphocytes % (Manual) 1.0 L Reactive Lymphs % (Man) 0 Monocytes % (Manual) 4.0 Eosinophils % (Manual) 0 Basophils % (Manual) 0 Metamyelocytes % 0 Myelocytes % 0 Promyelocytes % 0 Blast Cells % 0 Nucleated RBC % Not Reportable Seg Neutrophils # Man 12.0 H Band Neutrophils # 0.0 Lymphocytes # (Manual) 0.1 L Abs React Lymphs (Man) 0.0 Monocytes # (Manual) 0.5 Eosinophils # (Manual) 0.0 Basophils # (Manual) 0.0 Metamyelocytes # 0.0 Myelocytes # 0.0 Promyelocytes # 0.0 Blast Cells # 0.0 WBC Morphology Not Reportable Hypersegmented Neuts Not Reportable Hyposegmented Neuts Not Reportable Hypogranular Neuts Not Reportable Smudge Cells Not Reportable Toxic Granulation Not Reportable Toxic Vacuolation Not Reportable Dohle Bodies Not Reportable Pelger-Huet Anomaly Not Reportable Collette Rods Not Reportable Platelet Estimate Consistent w auto Clumped Platelets Not Reportable Plt Clumps, EDTA Not Reportable Large Platelets Rare Giant Platelets Not Reportable Platelet Satelliting Not Reportable Plt Morphology Comment Not Reportable RBC Morphology Normal Dimorphic RBCs Not Reportable Polychromasia Not Reportable Hypochromasia Not Reportable Poikilocytosis Not Reportable Anisocytosis Not Reportable Microcytosis Not Reportable Macrocytosis Not Reportable Spherocytes Not Reportable Pappenheimer Bodies Not Reportable Sickle Cells Not Reportable Target Cells Not Reportable Tear Drop Cells Not Reportable Ovalocytes Not Reportable Helmet Cells Not Reportable [place] Bodies Not Reportable [place] Rings Not Reportable [place] Cells Not Reportable Bite Cells Not Reportable Crenated Cell Not Reportable Elliptocytes Not Reportable Acanthocytes (Spur) Not Reportable Rouleaux Not Reportable Hemoglobin C Crystals Not Reportable Schistocytes Not Reportable Malaria parasites Not Reportable Obed Bodies Not Reportable Hem Pathologist Commnt No Sodium 139 Potassium 4.5 Chloride 100.6 Carbon Dioxide 24 Anion Gap 19 BUN 20 Creatinine 1.0 Estimated GFR > 60 BUN/Creatinine Ratio 20 Glucose 136 H Calcium 10.8 H Total Bilirubin 0.70 AST 19 ALT 25 Alkaline Phosphatase 48 Total Protein 8.3 H Albumin 5.0 Albumin/Globulin Ratio 1.5 Lipase 32 - Radiology Data Radiology results: report reviewed (CT abdomen pelvis), image reviewed (CT abdomen pelvis) Findings [facility] [address] [place] [address] Cat Scan Report Signed Patient: MARLENI MERCER MR#: [id number] : 1965 Acct:[id number] Age/Sex: 54 / M ADM Date: 03/21/20 Loc: ED Attending Dr: Ordering Physician: AMANDEEP YIP MD Date of Service: 03/21/20 Procedure(s): CT abdomen pelvis w con Accession Number(s): [id number] cc: AMANDEEP YIP MD CT abdomen pelvis w con INDICATION / CLINICAL INFORMATION: Abdominal pain with vomiting. TECHNIQUE: Routine CT of the abdomen and pelvis with IV All CT scans at this location are performed using CT dose reduction for ALARA by means of automated exposure control. COMPARISON: 12/12/2018. FINDINGS: The liver, spleen, pancreas, and kidneys are grossly unremarkable. There is some mild thickening involving both adrenal glands, similar to the prior exam. A small cysts noted within the right hepatic lobe, unchanged. Urinary bladder is unremarkable. The prostate is mildly enlarged. There is asymmetric enlargement of the left seminal vesicle. This is unchanged from the prior exam. No free air or free fluid. Review of bone windows demonstrates thoracolumbar degenerative changes. IMPRESSION: 1. No acute intra-abdominal findings or change from 12/12/2018. 2. Incidental findings as noted above, also stable from the prior exam including bilateral adrenal thickening.. Signer Name: Erick Cid MD Signed: 03/21/2020 10:56 PM Workstation Name: [id number] Transcribed By: Dictated By: Erick Cid MD Electronically Authenticated By: Erick Cid MD Signed Date/Time: 03/21/202255 DD/ 50 TD/TT: - Differential Diagnosis Gastritis, partial small bowel obstruction, pancreatitis, GERD Critical care attestation.: If time is entered above; I have spent that time in minutes in the direct care of this critically ill patient, excluding procedure time. ED Disposition Clinical Impression: Intractable nausea and vomiting Disposition: DC-01 TO HOME OR SELFCARE Is pt being admited?: No Does the pt Need Aspirin: No Condition: Stable Instructions: Acute Nausea and Vomiting (ED) Additional Instructions: Return to the emergency department should you develop worsening symptoms, inability to tolerate food or liquids, high fever or any other concerns Prescriptions: Promethazine [Phenergan] 25 mg DC Q6HR PRN #5 supp.rect PRN Reason: Vomiting Metoclopramide [Reglan] 10 mg PO QID PRN #20 tab PRN Reason: Nausea Referrals: JILLIAN PRINCE [Other] - RUPA (Please follow-up with your primary physician and/or cadd operator for further evaluation) Time of Disposition: 23:18
--- NOTE | 2020-03-21 23:00 | Cat Scan Report ---
CT abdomen pelvis w con INDICATION / CLINICAL INFORMATION: Abdominal pain with vomiting. TECHNIQUE: Routine CT of the abdomen and pelvis with IV All CT scans at this location are performed using CT dos e reduction for ALARA by means of automated exposure control. COMPARISON: 12/12/2018. FINDINGS: The liver, spleen, pancreas, and kidneys are grossly unremarkable. There is some mild thickening invo lving both adrenal glands, similar to the prior exam. A small cysts noted within the right hepatic lo be, unchanged. Urinary bladder is unremarkable. The prostate is mildly enlarged. There is asymmetric enlargement of the left seminal vesicle. This is unchanged from the prior exam. No free air or free fluid. Review of bone windows demonstrates thoracolumbar degenerative changes. IMPRESSION: 1. No acute intra-abdominal findings or change from 12/12/2018. 2. Incidental findings as noted above, also stable from the prior exam including bilateral adrenal th ickening.. Signer Name: Erick Cid MD Signed: 03/21/2020 10:56 PM Workstation Name: [id number]
[2020-03-21] MEDS ORDERED: METOCLOPRAMIDE 10 MG/2 ML INJ IV ONE (23:20)
== END 2020-03-21 23:35 | disposition home or self-care (01) ==
LOC: ED 11:48
DX: R11.2 Nausea with vomiting, unspecified (principal); I10 Essential (primary) hypertension; F17.200 Nicotine dependence, unspecified, uncomplicated; Z79.899 Other long term (current) drug therapy
CPT/HCPCS: 36415; 74177; 80053; 83690; 85007; 85025; 96361; 96374; 96375; 99284; J2405; J2765; J7030; Q9967

== ENCOUNTER 2022-03-03 11:54 | Emergency (ER) | payer OTHER ==
[2022-03-03 14:03] LABS: Bilirubin,Urine NEG (Negative); Blood,Urine NEG (Negative); Color,Urine Amber (Yellow)
[2022-03-03 14:08] LABS: Hematocrit 50.9 % (35.5-45.6); Hemoglobin 16.6 gm/dl (11.8-15.2); Mean Corpuscular HGB Conc 33 % (32-34); Mean Corpuscular Volume 98 fl (84-94); Platelet Count 333 K/mm3 (140-440); Red Blood Count 5.17 M/mm3 (3.65-5.03); Red Cell Distribution Width 12.9 % (13.2-15.2)
[2022-03-03 14:10] LABS: Hyaline Casts,Urine 14 /LPF; Mucus,Urine 3+ /HPF
[2022-03-03] MEDS ORDERED: SODIUM CHLORIDE 0.9% 1000 ML 1,000 ML IV ONE ×3 (14:27→16:20)
[2022-03-03 14:31] LABS: Alanine Aminotransferase 38 units/L (7-56); Albumin 4.5 g/dL (3.9-5); BUN/Creatinine Ratio 24; Blood Urea Nitrogen 34 mg/dL (9-20); Hemolysis Index 9
--- NOTE | 2022-03-03 14:39 | Emergency Department Report ---
ED Abdominal Pain HPI - General Chief Complaint: Abdominal Pain Stated Complaint: ABD PAIN X 5 DAYS Time Seen by Provider: 03/03/22 14:36 Source: patient Mode of arrival: Ambulatory Limitations: No Limitations - History of Present Illness Initial Comments: Mr. Berger is a 56-year-old male that is in no acute distress on arrival. He comes in complaining of left upper quadrant pain that started about 2 weeks ago. He states that he earlier in the week had nausea vomiting and decreased p.o. intake. He does not endorse diarrhea. He states that overall he is feeling better but the pain is persisted so he comes to the emergency room. His abdominal exam is unremarkable. He has no tenderness on palpation. Patient is otherwise healthy. Home medications HCTZ and multivitamin Patient has no known ill contacts -: Gradual, days(s) Location: [facility] Migration to: no migration Worsens With: nothing Associated Symptoms: denies other symptoms, nausea, vomiting (Resolved resolved). denies: diarrhea, fever, chills, constipation, dysuria, hematemesis, hematochezia, melena, hematuria, anorexia, syncope - Related Data Previous Rx's Medication Instructions Recorded Last Taken Type Ondansetron [Zofran Odt] 4 mg PO Q8HR PRN #10 tab.rapdis 03/03/22 Unknown Rx Pantoprazole [Protonix] 40 mg PO QDAY #30 tablet 03/03/22 Unknown Rx Allergies Allergy/AdvReac Type Severity Reaction Status Date / Time No Known Allergies Allergy Verified 12/12/18 17:16 ED Review of Systems ROS: Stated complaint: ABD PAIN X 5 DAYS Other details as noted in HPI Comment: All other systems reviewed and negative ED Past Medical Hx - Past Medical History Previous Medical History?: Yes Hx Hypertension: Yes (on meds for 2 years) Hx Congestive Heart Failure: No Hx Diabetes: No Hx Sickle Cell Disease: No Hx Asthma: No Hx COPD: No Hx HIV: No - Surgical History Past Surgical History?: Yes Additional Surgical History: BACK SURGERY CECILY IN LEG - Family History Family history: no significant - Social History Smoking Status: Current Every Day Smoker (Cigars) Substance Use Type: None (Denies illicit drug use), Alcohol (Moderate) - Medications Home Medications: Home Medications Medication Instructions Recorded Confirmed Last Taken Type Ondansetron [Zofran Odt] 4 mg PO Q8HR PRN #10 tab.rapdis 06/30/22 Unknown Rx Pantoprazole [Protonix] 40 mg PO QDAY #30 tablet 03/03/22 Unknown Rx ED Physical Exam - General Limitations: No Limitations General appearance: alert, in no apparent distress - Head Head exam: Present: atraumatic, normocephalic - Eye Eye exam: Present: normal appearance - ENT ENT exam: Present: mucous membranes moist - Neck Neck exam: Present: normal inspection - Respiratory Respiratory exam: Present: normal lung sounds bilaterally. Absent: respiratory distress - Cardiovascular Cardiovascular Exam: Present: regular rate, normal rhythm. Absent: systolic murmur, diastolic murmur, rubs, gallop - GI/Abdominal GI/Abdominal exam: Present: soft, normal bowel sounds - Rectal Rectal exam: Present: deferred - Extremities Exam Extremities exam: Present: normal inspection - Back Exam Back exam: Present: normal inspection - Neurological Exam Neurological exam: Present: alert, oriented X3 - Psychiatric Psychiatric exam: Present: normal affect, normal mood - Skin Skin exam: Present: warm, dry, intact, normal color. Absent: rash ED Course Vital Signs 03/03/22 12:30 Temperature 98.1 F Pulse Rate 91 H Respiratory 16 Rate Blood Pressure 129/61 [Left] O2 Sat by Pulse 100 Oximetry ED Medical Decision Making - Lab Data Result diagrams: 03/03/22 14:31 03/03/22 13:46 - Radiology Data Radiology results: report reviewed, image reviewed No acute process - Medical Decision Making Lab Results 03/03/22 03/03/22 03/03/22 Range/Units 13:46 13:46 14:31 WBC 13.9 H 13.4 H (4.5-11.0) K/mm3 RBC 5.17 H 5.04 H (3.65-5.03) M/mm3 Hgb 16.6 H 16.1 H (11.8-15.2) gm/dl Hct 50.9 H 49.6 H (35.5-45.6) % MCV 98 H 99 H (84-94) fl MCH 32 32 (28-32) pg MCHC 33 33 (32-34) % RDW 12.9 L 13.1 L (13.2-15.2) % Plt Count 333 316 (140-440) K/mm3 Lymph % (Auto) 10.6 L (13.4-35.0) % [place] % (Auto) 8.8 H (0.0-7.3) % Eos % (Auto) 0.1 (0.0-4.3) % Baso % (Auto) 0.4 (0.0-1.8) % Lymph # (Auto) 1.4 (1.2-5.4) K/mm3 [place] # (Auto) 1.2 H (0.0-0.8) K/mm3 Eos # (Auto) 0.0 (0.0-0.4) K/mm3 Baso # (Auto) 0.1 (0.0-0.1) K/mm3 Seg Neutrophils % 80.1 H (40.0-70.0) % Seg Neutrophils # 10.8 H (1.8-7.7) K/mm3 Sodium 141 (137-145) mmol/L Potassium 3.9 (3.6-5.0) mmol/L Chloride 103.3 (98-107) mmol/L Carbon Dioxide 24 (22-30) mmol/L Anion Gap 18 mmol/L BUN 34 H (9-20) mg/dL Creatinine 1.4 H (0.8-1.3) mg/dL Estimated GFR > 60 ml/min BUN/Creatinine Ratio 24 % Glucose 102 H (75-100) mg/dL Lactic Acid (0.7-2.0) mmol/L Calcium 10.0 (8.4-10.2) mg/dL Total Bilirubin 1.30 H (0.1-1.2) mg/dL AST 23 (5-40) units/L ALT 38 (7-56) units/L Alkaline Phosphatase 56 (35-129) units/L Total Protein 7.5 (6.3-8.2) g/dL Albumin 4.5 (3.9-5) g/dL Albumin/Globulin Ratio 1.5 % Lipase 47 (13-60) units/L Urine Color (Yellow) Urine Turbidity (Clear) Urine pH (5.0-7.0) Ur Specific [place] (1.003-1.030) Urine Protein (Negative) mg/dL Urine Glucose (UA) (Negative) mg/dL Urine Ketones (Negative) mg/dL Urine Blood (Negative) Urine Nitrite (Negative) Urine Bilirubin (Negative) Urine Urobilinogen (<2.0) mg/dL Ur Leukocyte Esterase (Negative) Urine WBC (Auto) (0.0-6.0) /HPF Urine RBC (Auto) (0.0-6.0) /HPF U Epithel Cells (Auto) (0-13.0) /HPF Hyaline Casts /LPF Urine Mucus /HPF 03/03/22 03/03/22 Range/Units 14:31 Unknown WBC (4.5-11.0) K/mm3 RBC (3.65-5.03) M/mm3 Hgb (11.8-15.2) gm/dl Hct (35.5-45.6) % MCV (84-94) fl MCH (28-32) pg MCHC (32-34) % RDW (13.2-15.2) % Plt Count (140-440) K/mm3 Lymph % (Auto) (13.4-35.0) % [place] % (Auto) (0.0-7.3) % Eos % (Auto) (0.0-4.3) % Baso % (Auto) (0.0-1.8) % Lymph # (Auto) (1.2-5.4) K/mm3 [place] # (Auto) (0.0-0.8) K/mm3 Eos # (Auto) (0.0-0.4) K/mm3 Baso # (Auto) (0.0-0.1) K/mm3 Seg Neutrophils % (40.0-70.0) % Seg Neutrophils # (1.8-7.7) K/mm3 Sodium (137-145) mmol/L Potassium (3.6-5.0) mmol/L Chloride (98-107) mmol/L Carbon Dioxide (22-30) mmol/L Anion Gap mmol/L BUN (9-20) mg/dL Creatinine (0.8-1.3) mg/dL Estimated GFR ml/min BUN/Creatinine Ratio % Glucose (75-100) mg/dL Lactic Acid 1.70 (0.7-2.0) mmol/L Calcium (8.4-10.2) mg/dL Total Bilirubin (0.1-1.2) mg/dL AST (5-40) units/L ALT (7-56) units/L Alkaline Phosphatase (35-129) units/L Total Protein (6.3-8.2) g/dL Albumin (3.9-5) g/dL Albumin/Globulin Ratio % Lipase (13-60) units/L Urine Color Janice (Yellow) Urine Turbidity Clear (Clear) Urine pH 5.0 (5.0-7.0) Ur Specific [place] 1.028 (1.003-1.030) Urine Protein 30 mg/dl (Negative) mg/dL Urine Glucose (UA) Neg (Negative) mg/dL Urine Ketones Neg (Negative) mg/dL Urine Blood Neg (Negative) Urine Nitrite Neg (Negative) Urine Bilirubin Neg (Negative) Urine Urobilinogen 4.0 (<2.0) mg/dL Ur Leukocyte Esterase Neg (Negative) Urine WBC (Auto) 2.0 (0.0-6.0) /HPF Urine RBC (Auto) 1.0 (0.0-6.0) /HPF U Epithel Cells (Auto) 1.0 (0-13.0) /HPF Hyaline Casts 14 /LPF Urine Mucus 3+ /HPF Vital Signs 03/03/22 12:30 Temperature 98.1 F Pulse Rate 91 H Respiratory 16 Rate Blood Pressure 129/61 [Left] O2 Sat by Pulse 100 Oximetry Labs noted. UA noted. CT scan noted. Patient medicated with 2 L normal saline and Zofran while in the ER. On follow-up exam he reports feeling better and he is taking p.o. without difficulty. Vital signs stable. Patient remains pain-free during ER stay. Patient being discharged home with discharge plan of care including diet, activity, medications and follow-up. Patient verbalizes understanding of discharge plan of care - Differential Diagnosis Rule out cholecystitis, kidney stones, acute abdomen Critical care attestation.: If time is entered above; I have spent that time in minutes in the direct care of this critically ill patient, excluding procedure time. ED Disposition Clinical Impression: Enlarged prostate, Intractable nausea and vomiting Disposition: 01 HOME / SELF CARE / HOMELESS Is pt being admited?: No Does the pt Need Aspirin: No Condition: Stable Instructions: Nausea, Adult Additional Instructions: Medication as ordered today for nausea. Follow-up with PCP and GI doctor RUPA. Have given you referrals below. Your PCP should be told that you do have enlarged prostate on CT scan. Your PCP should report your labs and compare them with ER values. Daily Protonix as prescribed Stay well-hydrated with water. Avoid alcohol and cigarettes. Prescriptions: Pantoprazole [Protonix] 40 mg PO QDAY #30 tablet Ondansetron [Zofran Odt] 4 mg PO Q8HR PRN #10 tab.rapdis PRN Reason: Vomiting Referrals: EARNESTINE CARSON MD [Staff Physician] - 3-5 Days CRISTIAN GOODRICH MD [Staff Physician] - 3-5 Days Forms: Work/School Release Form(ED) Time of Disposition: 17:34
[2022-03-03 14:54] LABS: Basophils # (Auto) 0.1 K/mm3 (0.0-0.1); Basophils % (Auto) 0.4 % (0.0-1.8); Eosinophils % (Auto) 0.1 % (0.0-4.3); Hematocrit 49.6 % (35.5-45.6); Hemoglobin 16.1 gm/dl (11.8-15.2); Lymphocytes # (Auto) 1.4 K/mm3 (1.2-5.4); Lymphocytes % (Auto) 10.6 % (13.4-35.0); Mean Corpuscular HGB Conc 33 % (32-34); Mean Corpuscular Volume 99 fl (84-94); Monocytes # (Auto) 1.2 K/mm3 (0.0-0.8); Monocytes % (Auto) 8.8 % (0.0-7.3); Platelet Count 316 K/mm3 (140-440); Red Blood Count 5.04 M/mm3 (3.65-5.03); Red Cell Distribution Width 13.1 % (13.2-15.2)
--- NOTE | 2022-03-03 16:06 | Cat Scan Report ---
CT abdomen pelvis w con INDICATION / CLINICAL INFORMATION: ABD PAIN. TECHNIQUE: Axial CT imaging of abdomen and pelvis was obtained with 100 mL Omnipaque 300 IV contrast. Coronal an d sagittal reformatted imaging obtained and reviewed. All CT scans at this location are performed us ing CT dose reduction for ALARA by means of automated exposure control. COMPARISON: Prior CT 03/21/2020 FINDINGS: CT abdomen with contrast demonstrates grossly normal appearance of the liver. As noted on prior studi es, there is a simple cyst within the right hepatic lobe measuring 2.6 cm. Spleen, pancreas, gallblad zay, and kidneys all appear within normal limits. Both adrenal glands remain diffusely thickened but unchanged from prior exams. No biliary dilatation. Abdominal aorta is unremarkable. CT pelvis with contrast continues to demonstrate a mild to moderately enlarged prostate gland. No pel francisco mass, free fluid, or focal inflammatory changes noted. The appendix is not identified. GI tract i s within normal limits. Visualized lung bases are clear. No acute osseous abnormality. IMPRESSION: 1. No acute finding within the abdomen or pelvis. 2. Enlarged prostate gland. Signer Name: Shabana Gilmore MD Signed: 03/03/2022 4:02 PM Workstation Name: [id number]
[2022-03-03] MEDS ORDERED: ONDANSETRON 4 MG/2 ML INJ IV ONE (16:16)
[2022-03-03 18:11] VITALS: BP 151/78
[2022-03-03 18:57] LABS: BUN/Creatinine Ratio 25; Blood Urea Nitrogen 32 mg/dL (9-20); Calcium 9.4 mg/dL (8.4-10.2); Hemolysis Index 8
== END 2022-03-03 18:09 | disposition home or self-care (01) ==
LOC: ED 11:54
DX: N40.0 Benign prostatic hyperplasia without lower urinary tract symptoms (principal); R11.2 Nausea with vomiting, unspecified; I10 Essential (primary) hypertension; F17.200 Nicotine dependence, unspecified, uncomplicated; Z79.899 Other long term (current) drug therapy
CPT/HCPCS: 36415; 74177; 80048; 80053; 81001; 82140; 83690; 85025; 85027; 87040; 96360; 96361; 99284; J2405; J7030; Q9967